=== PATIENT | male | born 1970 | race Caucasian/White ===

== ENCOUNTER 2016-06-28 05:06 | Day surgery (SDC) | payer MEDICARE ==
[~2016-06-28] VITALS: Ht 170.2 cm; Wt 143.3 kg
--- NOTE | ~2016-06-28 | OP ---
PATIENT NAME: LION MCALLISTER MEDICAL RECORD: [id number] :68 LOCATION:D.OPS ADMISSION DATE: SURGEON: RIGO CAMPOS MD DATE OF OPERATION: 06/28/2016 PREOPERATIVE DIAGNOSES: 1. Umbilical hernia. 2. Hypertension. 3. Morbid obesity. POSTOPERATIVE DIAGNOSES: 1. Umbilical hernia. 2. Hypertension. 3. Morbid obesity. PROCEDURE: Umbilical hernia repair without mesh. SURGEON: Rigo Campos MD. REPORT OF PROCEDURE: The patient's abdomen was prepped and draped in sterile fashion. A semi-circular incision was made on the inferior aspect of the umbilicus. Electrocautery was used to dissect through the subcutaneous tissues and we bluntly came around the umbilical stalk. Electrocautery was used to dissect through the hernia sac just below the base of the umbilicus. There was omentum present within it. This was teased back down into the abdominal cavity. We then dissected the fascial edges free from the hernia sac using electrocautery. At this point, we can measure out the hernia defect at 1 x 1.1 cm in greatest diameter. The fascia was then closed transversely using interrupted 0 Prolenes times 4. There was good approximation of the tissue and did not appear to be under any tension. The umbilicus was then tacked down to the fascia using an interrupted 3-0 Vicryl, Silverio's was reapproximated with interrupted 3-0 Vicryls and the skin was closed with running subcutaneous 5-0 Monocryl. A total of 10 mL of 0.25% Marcaine plain were infused into the surrounding tissues and the wound was dressed appropriately. COMPLICATIONS: None. CONDITION: Stable. ANESTHESIA: General endotracheal and local. BLOOD LOSS: Minimal. TRANSINT:[id number] Voice Confirmation ID: [id number] DOCUMENT ID: [id number] RIGO CAMPOS MD CC: LARRY COOL MD [id number] DICTATION DATE: 06/28/16 0850 HOME HEALTH AID: 06/28/16 111[id number] [place] [address]
[~2016-06-28 05:06] MED LIST: COZAAR25 MG PO
[2016-06-28 05:54] LABS: BASOPHILS 0.3 % (0.0-2.0); HEMATOCRIT 41.8 % (42.0-54.0); HEMOGLOBIN 14.1 g/dL (13.5-17.5); IMMATURE GRANULOCYTES 0.2 % (0-5); LYMPHOCYTES 29.8 % (15-50); MCH 32.6 pg (26.0-34.0); MCHC 33.7 g/dL (31.0-37.0); MCV 96.5 fL (80.0-100.0); MEAN PLATELET VOLUME 10.5 fL (7.4-10.4); MONOCYTES 9.4 % (2-11); NEUTROPHILS 57.3 % (40-80); PLATELET COUNT 157 10x3/uL (130-400); RBC 4.33 10x6/uL (4.20-6.10); RDW 12.3 % (11.5-14.5); WBC 5.9 10x3/uL (4.8-10.8)
[2016-06-28 06:11] VITALS: BP 130/103; Ht 170.2 cm; Wt 143.3 kg
[2016-06-28 06:34] LABS: CALC OSMOLALITY 279 mosm/kg (275-300); CALCIUM 8.5 mg/dL (8.5-10.1); CARBON DIOXIDE 30.6 mmol/L (21.0-32.0); CHLORIDE - SERUM 104 mmol/L (98-107); GLUCOSE 94 mg/dL (74-106); POTASSIUM - SERUM 4.2 mmol/L (3.5-5.1); SODIUM 141 mmol/L (136-145); UREA NITROGEN 9 mg/dL (7-18); eGFR NON AFRICAN AMERICAN 85 mL/min (90-120)
--- NOTE | 2016-06-28 08:15 | NUR ---
0810 PATIENT HAD SEVERAL SMALL RED CRUSTY SORES ON ABDOMEN, JONAH STORM.
[2016-06-28] MEDS ORDERED: HYDROCODONE-APA1 TAB PO (08:47)
--- NOTE | 2016-06-28 12:41 | NUR ---
1200 PT VOIDS QS, IV DC'D PER ABNER HEARD RN GETTING DRESSED. 1210 DC INSTS. GIVEN PER ABNER HEARD RN. RX GIVEN, RELEASED IN WC WITH FAMILY.
== END 2016-06-28 12:10 | disposition home or self-care (01) ==
LOC: D.OPS 05:06 → D.PAN 07:30 → D.OPS 07:30 → D.PAN 09:00 → D.OPS 09:00
PROVIDERS: Surgery
DX: K42.9 Umbilical hernia without obstruction or gangrene (principal); I10 Essential (primary) hypertension; E66.01 Morbid (severe) obesity due to excess calories

== ENCOUNTER 2016-07-01 07:06 | Emergency (ER) | payer MEDICARE ==
[2016-06-28 06:11] VITALS: BMI 49.6
[~2016-07-01 07:06] MED LIST changes: +HYDROCODONE-APA1 TAB PO
== END 2016-07-01 09:48 | disposition home or self-care (01) ==
LOC: D.ER 07:06
DX: G89.18 Other acute postprocedural pain (principal); R20.9 Unspecified disturbances of skin sensation; K21.9 Gastro-esophageal reflux disease without esophagitis; I10 Essential (primary) hypertension

== ENCOUNTER 2016-07-03 12:45 | Emergency (ER) | payer MEDICARE ==
[2016-06-28 06:11] VITALS: BMI 49.6
== END 2016-07-03 14:30 | disposition home or self-care (01) ==
LOC: D.ER 12:45
DX: S86.911A Strain of unspecified muscle(s) and tendon(s) at lower leg level, right leg, initial encounter (principal); X58.XXXA Exposure to other specified factors, initial encounter; Y93.89 Activity, other specified; Y92.89 Other specified places as the place of occurrence of the external cause; M79.604 Pain in right leg; M62.838 Other muscle spasm; M54.10 Radiculopathy, site unspecified; K21.9 Gastro-esophageal reflux disease without esophagitis; I10 Essential (primary) hypertension

== ENCOUNTER 2017-10-29 00:04 | Outpatient (CLI) | payer SELFPAY ==
[~2017-10-29] VITALS: Ht 170.2 cm; Wt 129.5 kg
--- NOTE | ~2017-10-29 | EC ---
PATIENT:LION MCALLISTER DATE OF SERVICE: 10/29/17 SEX: M MEDICAL RECORD: [id number] DATE OF : 68 LOCATION:D.CAT AGE OF PATIENT: 47 ADMISSION DATE: 10/29/17 REFERRING PHYSICIAN: INTERPRETING PHYSICIAN: DIONY ARELLANO MD ECHOCARDIOGRAM REPORT ECHO CHARGES 4 ECHO COMPLETE Date: 10/29 CLINICAL DIAGNOSIS: ANGINA ECHOCARDIOGRAPHIC MEASUREMENTS (adult normal given) AC root (d.<3.7cm) 3.6 cm LV Septum d (<1.2 cm> 1.4 cm Valve Excursion 1.6 cm LV Septum (systole) 1.7 cm Left Atria (s.<4.0cm> 3.7 cm LVPW d(<1.2cm) 1.6 cm RV (d.<2.3cm) 4.1 cm LVPW (sytole) 2.0 cm LV diastole(<5.6CM) 5.3 cm MV E-F(>70mm/sec) 4.5 cm LV systole 4.5 cm LVOT Diameter 1.8 cm MV exc.(>10mm) 2.0 cm Est.ejection fraction (50-75%) % DOPPLER: LVIT cm/sec A 57.0 cm/sec E 53.0 cm/sec LA cm/sec RVSP 20 mmHg LVOT 96 cm/sec AOP1/2T m/s Asc. Ao 113 cm/sec RVOT 69 cm/sec RA cm/sec PA 120 cm/sec AV Gradient Peak 5.09 mmHg AV Mean 2.37 mmHg AV Area 2.1 cm MV Gradient Peak 1.59 mmHg MV Mean 0.78 mmHg MV Area cm COMMENTS: Printer Maintainer: Britni [employer] Technician: 1 Dr. Arellano TAPE# PACS Pericardial Effusion N DATE OF SERVICE: 10/29/2017 PROCEDURE: Echocardiogram. FINDINGS: 1. Left ventricular chamber size is within normal limits. Left ventricular systolic function is normal. Overall ejection fraction estimated at 55%. 2. Left atrium, right atrium, and right ventricle chamber sizes are within normal limits. 3. Valvular structures have normal structure and motion. ECHOCARDIOGRAM REPORT [id number] LION MCALLISTER 4. Doppler interrogation only reveals trace tricuspid regurgitation, no other valvular insufficiency or stenosis. Pulmonary systolic pressure is estimated at 20 mmHg. 5. No evidence of pericardial effusion or left ventricular thrombus. TRANSINT:[id number] Voice Confirmation ID: [id number] DOCUMENT ID: [id number] DIONY ARELLANO MD at 1642 CC: [id number] DICTATION DATE: 10/30/17 120 [employer] RESEARCH SCIENTIST: 10/30/17 1304 DEP CLI 10/30/17 [id number] [place] [address] [id number]
--- NOTE | ~2017-10-29 | OP ---
PATIENT NAME: LION MCALLISTER MEDICAL RECORD: [id number] :68 LOCATION:D.CAT ADMISSION DATE: SURGEON: DIONY RICHTER MD DATE OF OPERATION: 10/30/2017 PROCEDURE: Four-vessel carotid and vertebral angiography. INDICATION: Dizziness and near syncope. PROCEDURE IN DETAIL: After informed consent was obtained and after detailed description of risks and benefits as well as alternative therapies, the patient elected to proceed with angiogram. The right femoral area had a preexisting sheath from cardiac intervention. All catheters were exchanged through the sheath. FINDINGS: There was subselection of each subclavian as well as left carotid. On right side, common internal and external carotids have mild plaquing, but none greater than 10%. No flow-limiting stenosis. Vertebral artery has no significant disease. In left system, the common internal and external carotids have mild plaquing, not greater than 10%. No flow-limiting stenosis. Vertebral artery has no significant disease. OVERALL IMPRESSION: No significant carotid vascular disease is present. His symptomatology is not secondary to carotid vascular insufficiency. TRANSINT:[id number] Voice Confirmation ID: [id number] DOCUMENT ID: [id number] DIONY RICHTER MD at 1642 CC: [id number] DICTATION DATE: 10/30/17 1018 NITRATOR OPERATOR: 10/30/17 1243 DEP CLI 10/30/17 [id number] [place] [address]
--- NOTE | ~2017-10-29 | HP ---
PATIENT: LION MCALLISTER MEDICAL RECORD: [id number] ACCOUNT: [id number] LOCATION:[facility] : 68 ADMISSION DATE: 10/29/17 HISTORY AND PHYSICAL EXAMINATION ADMISSION DIAGNOSES: 1. Unstable angina. 2. Dizziness, unsteady gait. 3. Hypertension. HISTORY OF PRESENT ILLNESS: This is a gentleman with no history of ischemic heart disease. For the past few weeks, he has been having increasing episodes of chest pain and chest pressure. This has now progressed to rest pain. His troponin is normal. His EKG is with no acute changes; however, he continues to have the episodes of pain. He as well has had episodes of dizziness, syncope, and unsteady gait. PHYSICAL EXAMINATION: GENERAL APPEARANCE: Well-nourished, well-developed, appears stated age. Level of distress, comfortable. PSYCHIATRIC: Mental status, alert, normal affect. Orientation, oriented to time, place and person. EYES: Lids and conjunctiva, noninjected. No discharge, no pallor. ENT: Lips, teeth, gums, normal dentition. Oropharynx, no cyanosis, no pallor. NECK: Carotid arteries, bilateral normal upstroke, no bruits, no thrills. JUGULAR VEINS: No jugular venous pressure or distention. CERVICAL LYMPH NODES: Nontender, nonenlarged. THYROID: Not enlarged. Nontender. No nodules. LUNGS: Respiratory effort, unlabored. CHEST: Normal curvature. No thoracic deformity. No chest wall tenderness. Percussion, resonant. Auscultation, clear. No wheezes, no rales, no rhonchi. CARDIOVASCULAR: Precordial exam, nondisplaced. No heaves or pericardial thrills. Rate and rhythm, regular. Heart sounds, normal S1, normal S2. No S3, no gallop, no rub. Systolic murmur, not heard. Diastolic murmur, not heard. EXTREMITIES: No cyanosis, no edema. Peripheral pulses, full and equal in all extremities, except as noted. No bruits appreciated. ABDOMEN: Soft, nondistended. Normal aorta. No bruit. Nontender. No masses. Liver, nontender, no hepatomegaly. Spleen, nontender, no splenomegaly. MUSCULOSKELETAL: No joint tenderness. No joint swelling. No erythema. NEUROLOGICAL: Normal gait, normal strength, normal tone. SKIN: Warm and dry. REVIEW OF SYSTEMS: The patient reports easy bruising but reports no swollen glands. The patient reports no fever, no night sweats, no significant weight gain, no significant weight loss. No significant exercise tolerance. The patient reports no dry eyes, no irritation, no vision change. Patient reports no difficulty hearing and no ear pain. Patient reports no frequent nose bleeds or nose and sinus problems. Patient reports on arm pain on exertion. No shortness of breath while lying down. No history of heart murmur. Patient reports no cough, no wheezing or coughing up blood. Patient reports no abdominal pain, no vomiting. Normal appetite. No diarrhea and not vomiting blood. No nausea and no constipation. Patient reports no incontinence. No difficulty urinating. No hematuria. No increased frequency. Patient reports no muscle aches. No weakness, no arthralgias, no back pain. No swelling of the extremities. Patient reports no abnormal mole, no jaundice, no rashes. Reports HISTORY AND PHYSICAL [id number] LION MCALLISTER no loss of consciousness. No weakness and no numbness. No seizures, dizziness, or headaches. The patient reports no depression, no sleep disturbance, feeling safe in a relationship and no alcohol abuse. Patient reports on fatigue. Reports no runny nose or sinus pressure. No itching, no hives, and no frequent sneezing. OVERALL IMPRESSION: Chest pain compatible with unstable angina in rapidly progressive fashion. We will proceed with coronary angiography. Further care depends on findings of the angiography. TRANSINT:[id number] Voice Confirmation ID: [id number] DOCUMENT ID: [id number] DIONY RICHTER MD at 1642 CC: [id number] DICTATION DATE: 10/29/17 0957 STONE PLANER: 10/29/17 1032 DEP CLI 10/30/17 [place] [address]
--- NOTE | ~2017-10-29 | OP ---
PATIENT NAME: LION MCALLISTER MEDICAL RECORD: [id number] :68 LOCATION:D.CAT ADMISSION DATE: SURGEON: DIONY RICHTER MD DATE OF OPERATION: 10/30/2017 PROCEDURES: 1. PTCA and stent, LAD. 2. Left heart catheterization. 3. Selective coronary angiography. 4. Left ventriculogram. 5. Intravascular ultrasound. INDICATIONS: Angina and coronary disease. PROCEDURE IN DETAIL: After informed consent was obtained and after detailed description of risks and benefits as well as alternative therapies, the patient elected to proceed with angiogram and angioplasty. The right femoral area was prepped and draped in normal sterile fashion. The right femoral artery was cannulated via modified Seldinger technique with placement of 6-Georgian sheath. All catheters were exchanged through the sheath. FINDINGS: The left ventriculogram was performed in standard 30-degree BALL view, reveals good cardiac wall motion throughout all segments. Overall ejection fraction is estimated at 60%. SELECTIVE CORONARY ANGIOGRAPHY: 1. Left main is with no significant angiographic disease. 2. Left anterior descending has greater than 70% stenosis, confirmed by intravascular ultrasound. 3. Left circumflex has mild irregularities, but no flow-limiting stenosis. 4. Right coronary has mild irregularities, but no flow-limiting stenosis. PTCA AND STENT OF THE LAD: Stent used was a 2.25 x 38-mm [place]. Result was 0% residual stenosis. OVERALL IMPRESSION: Successful PTCA and stent of the LAD going from greater than 70% initial stenosis to 0% residual. TRANSINT:[id number] Voice Confirmation ID: [id number] DOCUMENT ID: [id number] DIONY RICHTER MD at 1642 CC: [id number] DICTATION DATE: 10/30/17 1018 TESTING SPECIALIST: 10/30/17 1236 DEP CLI 10/30/17 [id number] [place] [address]
--- NOTE | ~2017-10-29 | DS ---
PATIENT:LION CLANCY :68 MEDICAL RECORD: [id number] DISCHARGE SUMMARY ADMISSION DATE: 10/29/17 DISCHARGE DATE: 10/30/17 DISCHARGE DIAGNOSES: 1. Angina. 2. Percutaneous transluminal coronary angioplasty stent left anterior descending this admission. 3. Hypertension. HOSPITAL COURSE: Mr. Clancy presents with anginal symptomatology, found to have single vessel disease to the LAD, underwent successful PTCA stent of the LAD, had an uneventful postop course and was discharged home with the addition of aspirin and Plavix to his medical regimen. He will follow up with [facility] in 1 month. TRANSINT:[id number] Voice Confirmation ID: [id number] DOCUMENT ID: [id number] DIONY RICHTER MD at 1642 CC: [id number] DICTATION DATE: 10/30/17 1015 WELDING MANAGER: 10/30/17 1355 DEP CLI 10/30/17 [id number] [place] [address]
--- NOTE | ~2017-10-29 | HEMODYNAMI ---
PATIENT:LION MCALLISTER MEDICAL RECORD: [id number] : 68 [address] [id number] ADMISSION DATE: 10/29/17 Generatedon:10/30/201710:16 Patient name: LION MCALLISTER Patient #: [id number] SSN: DO B: 1970 Date of study: 10/30/2017 Page: Of Hemodynamic Procedure Report Patient Data Patient Demographics Procedure consent was obtained First Name: LION Gender: Male Last Name: ARY : 1970 [facility] Initial: BIBI Age: 47 year(s) Patient #: [id number] Race: Unknown Additional ID: [id number] Contact details Address: [address] [place] [address] State: [place] City: [place] Zip code: [address] Past Medical History Allergies: No known allergies Admission Admission Data Admission Date: 10/29/2017 Admission Time: 0:50 Room #: D2129 Lab Results Lab Result Date: 10/30/2017 Lab Result Time: 0:00 Biochemistry Name Units Result Min Max BUN mg/dl 13 --(--*-)-- 7 18 Creatinine mg/dl 1.1 --(--*-)-- 0.6 1.3 CBC Name Units Result Min Max Hemoglobin g/dl 16.1 --(--*-)-- 13.5 17.5 Procedure Procedure Types Cath Procedure Diagnostic Procedure LHC [facility] w/Coronaries FFR/IVUS Intra-Coronary IVUS Initial Sedation Charges Moderate Sedation up to 15 minutes PCI Procedure Coronary Stent Coronary Stent Initial Peripheral Cath Diagnostic Procedure Cath Peripheral Four Vessel Arteriogram Procedure Description Procedure Date Procedure Date: 10/30/2017 Procedure Start Time: 9:54 Procedure End Time: 10:16 Procedure Staff Name Function Kale Arellano MD Performing Physician Enedina Raza RT Monitor Malick López RT Scrub Agus Floyd RN Nurse Procedure Data Cath Procedure Fluoroscopy Diagnostic fluoroscopy Total fluoroscopy Time: 6.7 time: 6.7 min min Diagnostic fluoroscopy Total fluoroscopy dose: dose: 1031 mGy 1031 mGy Contrast Material Contrast Material Type Amount (ml) Isovue 300 129 Entry Location Entry Primary Successful Side Size Upsize Upsize Entry Closure Succes sful Closure Location (Fr) 1 (Fr) 2 (Fr) Remarks Device Remarks Femoral Right 5 Fr 6 Fr Exoseal artery Short Estimated blood loss: 10 ml Diagnostic catheters Device Type Used For End Catheter Placement MULTIPACK Pigtail 5 Fr Procedure catheter MULTIPACK JL 4.0 5Fr Procedure catheter MULTIPACK 3DRC 5Fr Procedure catheter Procedure Complications No complications Procedure Medications Medication Administration Route Dosage 0.9% NaCl I.V. 100 ml/hr Oxygen etCO2 Nasal cannula 2 l/min Heparin Flush Bag added to field 2 bags (1000units/500ml NS) Lidocaine 2% added to field 20 Versed I.V. 2 mg Fentanyl I.V. 100 mcg Versed I.V. 1 mg Heparin Bolus I.V. 4000 units Hemodynamics Rest HGB: 16.1 (g/dl) Heart Rate: 63 (bpm) Snapshots Pre Cath Intra NCS Post Cath Vital Signs Time Heart Resp SPO2 etCO2 NIBP (mmHg) Rhythm Pain Sedation Rate (ipm) (%) (mmHg) Status Level (bpm) 9:20:59 63 19 98 0 156/87(123) NSR 0 (11) 10(A) , No pain 9:25:44 62 18 100 36.6 168/98(111) NSR 0 (11) 10(A) , No pain 9:30:23 60 15 97 37.4 133/87(104) NSR 0 (11) 10(A) , No pain 9:35:38 66 20 98 33.6 164/84(129) NSR 0 (11) 10(A) , No pain 9:40:21 61 21 99 38.1 156/84(103) NSR 0 (11) 10(A) , No pain 9:45:05 64 12 98 23.9 141/84(105) NSR 0 (11) 10(A) , No pain 9:49:46 59 16 97 27.6 133/75(105) NSR 0 (11) 10(A) , No pain 9:54:22 79 15 96 37.4 142/97(108) NSR 0 (11) 9(A) , No pain 9:59:38 75 15 98 40.4 162/85(116) NSR 0 (11) 9(A) , No pain 10:04:21 70 13 96 39.6 148/86(135) NSR 0 (11) 9(A) , No pain 10:09:01 79 15 98 41.1 144/89(120) NSR 0 (11) 10(A) , No pain 10:13:40 73 15 98 41.9 145/91(119) NSR 0 (11) 10(A) , No pain Medications Time Medication Route Dose Verified Delivered Reason Notes Effectiveness by by 9:24:57 0.9% NaCl I.V. 100 Agus Agus Per physician ml/hr Everett Floyd RN RN 9:25:06 Oxygen etCO2 2 Agus Agus Per physician Nasal l/min Everett Floyd cannula RN RN 9:25:18 Heparin Flush added 2 Agus Agus used for Bag to bags Everett Floyd procedure (1000units/500ml field RN RN NS) 9:25:28 Lidocaine 2% added 20ml Agus Agus for local to vial Everett Floyd anesthetic RN RN 9:43:59 Versed I.V. 2 mg Agus Agus for sedation Everett Floyd RN RN 9:44:08 Fentanyl I.V. 100 Agus Agus for sedation mcg Everett Floyd RN RN 9:55:15 Versed I.V. 1 mg Agus Agus for sedation Everett Floyd RN RN 10:07:28 Heparin Bolus I.V. 4000 Agus Agus for units Everett Floyd anticoagulation RN retail wireless sales representative Log Time Note 9:04:35 Malick REYES(R) sent for patient. Start room use. 9:04:36 Time tracking: Regular hours (M-F 7:00 - 5:00) 9:04:39 Plan of Care:Hemodynamics will remain stable., Cardiac rhythm will remain stable., Comfort level will be maintained., Respiratory function will remain adequate., Patient/ family verbilizes understanding of procedure., Procedure tolerated without complication., Recovers from procedure without complications.. 9:04:41 Signed procedure consent form obtained from patient. 9:06:32 Lab Result : BUN 13 mg/dl 9:06:32 Lab Result : Hemoglobin 16.1 g/dl 9:06:32 Lab Result : Creatinine 1.1 mg/dl 9:06:54 H&P Date Dictated: 10/29/2017 Within 30 days and on chart.. 9:14:22 Patient received from Med II to CCL 1 Alert and oriented. Tansferred to table in Supine position. 9:14:23 Warm blankets applied, and dakotah hugger turned on for patient comfort. 9:14:24 Correct patient and procedure confirmed by team. 9:14:25 ECG and BP/O2 sat monitors applied to patient. 9:20:07 Vital chart was started 9:20:08 Baseline sample Acquired. 9:20:09 Full Disclosure recording started 9:23:12 Baseline sample Acquired. 9:23:17 Rhythm: sinus rhythm 9:24:22 Pre-procedure instructions explained to patient. 9:24:22 Pre-op teaching completed and patient verbalized understanding. 9:24:24 Family in patients room. 9:24:26 Patient NPO since Midnight. 9:24:31 Patient allergic to No known allergies 9:24:34 Is the patient allergic to Iodine/contrast media? No. 9:24:35 Is patient on blood thinner?Yes 9:24:37 ACC The patient was administered the following blood thiners within the last 24 hours: ACCPlavix 9:24:39 Patient diabetic? No. 9:24:41 Previous problem with sedation/anesthesia? No ? 9:24:42 Snore? Yes 9:24:43 Sleep apnea? No 9:24:44 Deviated septum? No 9:24:45 Opens mouth fully? Yes 9:24:46 Sticks out tongue? Yes 9:24:48 Airway obstruction? No ? 9:24:49 Dentures? Yes ? 9:24:54 Pre procedure: right dorsailis pedis pulse 2+ Normal; easily identifiable; not easily obliterated 9:24:57 0.9% NaCl 100 ml/hr I.V. was administered by Agus Floyd RN; Per physician; 9:24:57 Patient pain scale 0/10 ?. 9:25:00 IV patent on arrival in left hand with 0.9% NaCl at KVO. 9:25:03 Lab results completed and on chart. 9:25:06 Oxygen 2 l/min etCO2 Nasal cannula was administered by Agus Floyd RN; Per physician; 9:25:07 Right groin area was prepped with chlora-prep and draped in sterile fashion 9:25:08 Alarms reviewed by R. N. 9:25:08 Sharps counted by scrub and verified by R.N. 9:25:11 Use device set Femoral Dx 9:25:12 ACIST Syringe (03713) opened to sterile field. 9:25:14 Bag Decanter (2002S) opened to sterile field. 9:25:15 ACIST Hand Control (63477) opened to sterile field. 9:25:15 ACIST Manifold (25465) opened to sterile field. 9:25:17 Tegaderm 4 x 4 (1626W) opened to sterile field. 9:25:18 Heparin Flush Bag (1000units/500ml NS) 2 bags added to field was administered by Agus Floyd RN; used for procedure; 9:25:19 Medline Cath Pack (PSCP64026) opened to sterile field. 9:25:20 DIAGNOSTIC WIRE .035 260cm J wire (700121) opened to sterile field. 9:25:21 DIAGNOSTIC Multipack 5Fr catheter set (FS3041) opened to sterile field. 9:25:22 SHEATH Prelude 5Fr 0.035 (IUV-8N-30-035) opened to sterile field. 9:25:28 Lidocaine 2% 20ml vial added to field was administered by Agus Floyd RN; for local anesthetic; 9:37:47 Zero performed for pressure channel P1 9:42:18 --------ALL STOP TIME OUT------ 9:42:18 Final Timeout: patient, procedure, and site verified with staff and physician. All members of the team are in agreement. 9:42:19 Right groin site verified by team. 9:42:23 Physical assessment completed. ASA score P 2 - A patient with mild systemic disease as per Kale Arellano MD. 9:42:28 Sedation plan: IV Moderate Sedation Medication:Versed, Fentanyl 9:43:59 Versed 2 mg I.V. was administered by Agus Floyd RN; for sedation; 9:44:08 Fentanyl 100 mcg I.V. was administered by Agus Floyd RN; for sedation; 9:54:19 Procedure started. 9:54:23 Local anesthetic to right femoral artery with Lidocaine 2% by Kale Arellano MD.INITIAL ACCESS ONLY 9:55:11 A 5 Fr sheath was inserted into the Right Femoral artery 9:55:15 Versed 1 mg I.V. was administered by Agus Floyd RN; for sedation; 9:55:24 A MULTIPACK Pigtail 5 Fr catheter was advanced over the wire and used for Procedure. 9:55:38 LV gram done using BALL 9:55:40 Injector settings: Ml/sec: 10, Volume: 20, 9:56:02 EF : 60 % 9:56:04 Catheter removed. 9:56:10 A MULTIPACK JL 4.0 5Fr catheter was advanced over the wire and used for Procedure. 9:57:17 LCA angiography performed. 9:57:34 Catheter removed. 9:57:39 A MULTIPACK 3DRC 5Fr catheter was advanced over the wire and used for Procedure. 9:58:44 RCA angiography performed. 9:59:09 Right carotid angiography performed. 9:59:39 Left carotid angiography performed. 9:59:43 Catheter removed. 9:59:58 SHEATH 6FR [place] (LGV523) opened to sterile field. 10:00:02 INFLATOR Merit BasixCompak (XP5673) opened to sterile field. 10:00:09 CHOICE PT Extra Support 182cm wire ([id number]) opened to sterile field. 10:00:40 Clayton [place] IVUS Catheter (30010R) opened to sterile field. 10:00:51 Sheath upsized to a 6 Fr Short. 10:01:00 GUIDE 6FR XBLAD 4.0 catheter ([id number]) opened to sterile field. 10:01:11 6 Fr XBLAD 4 guide catheter was inserted over the wire 10:03:40 CHOICE ES 182 wire advanced. 10:03:42 Wire advanced across lesion. 10:04:11 IVUS catheter advanced over wire. 10:06:30 IVUS pass to LAD lesion performed. 10:06:31 IVUS catheter removed over wire. 10:07:28 Heparin Bolus 4000 units I.V. was administered by Agus Floyd RN; for anticoagulation; 10:09:11 Place stent Inflation Number: 1 A TEETEE RX 2.25 x 38 stent ([id number]) was prepped and advanced across the Mid LAD. The stent was deployed at 13 CRUZ for 0:10 (min:sec). 10:09:28 EXOSEAL 6Fr (EX600) opened to sterile field. 10:10:32 Stent catheter was removed intact over wire. 10:10:33 Wire removed. 10:10:33 Guide catheter removed. 10:10:49 Sheath removed intact; hemostasis achieved with Exoseal to the Right Femoral artery. 10:10:52 Procedure ended.(Physican Out) 10:12:27 Fluoroscopy time 06.70 minutes. 10:12:31 Fluoroscopy dose: 1031 mGy 10:12:31 Flurop Dose total: 1031 10:12:34 Contrast amount:Isovue 300 129ml. 10:12:36 Sharps counted by scrub and verified by R.N. 10:12:40 Post-op/insertion site Right Femoral artery dressed using a 4 x 4 and Tegaderm. 10:12:44 Post right femoral artery:stable, soft, clean and dry 10:12:47 Post-procedure physical assessment completed. ASA score P 2 - A patient with mild systemic disease as per Kale Arellano MD. 10:12:50 Post procedure rhythm: sinus rhythm 10:12:52 Estimated blood loss: 10 ml 10:13:34 Post procedure instruction explained to patient.Patient verbalizes understanding. 10:13:35 Patient needs reinforcement of post procedure teaching. 10:14:29 Procedure type changed to Cath procedure, Diagnostic procedure, LHC, LHC w/Coronaries, FFR/IVUS, Intra-Coronary IVUS Initial, Sedation Charges, Moderate Sedation up to 15 minutes, PCI procedure, Coronary Stent, Coronary Stent Initial, Peripheral Cath Diagnostic Procedure, Cath Peripheral, Four Vessel Arteriogram 10:15:41 Procedure and supply charges have been captured, reviewed, submitted and are correct. 10:15:43 Procedure Complication : No complications 10:15:47 Vital chart was stopped 10:15:47 See physician's report for complete and final results. 10:16:07 Report given to PCU. 10:16:10 Patient transfered to PCU with Bed. 10:16:11 Procedure ended. 10:16:11 Full Disclosure recording stopped 10:16:16 End room use (Document Last) Intervention Summary Intervention Notes Time ActionType Lesion and Equipment Used Action# Pressure Duration Attributes 10:09:11 Place stent Mid LAD TEETEE RX 2.25 x 1 13 00:10 38 stent ([id number]) Device Usage Item Name Manufacture Quantity Catalog Number Hospital Part Current Minimal Lot# / Charge Number Stock Stock Serial# Code ACIST Syringe Acist 1 66900 093643 964451 555020 20 (54798) [employer] Bag Decanter Microtek 1 2001S 303191 54416 656471 5 (2001S) Medical Inc. ACIST Hand Acist 1 82306 738883 446740 078236 5 Control (70591) [employer] Inc ACIST Manifold Acist 1 26257 799539 007167 458539 5 (10121) [employer] Systems Inc Tegaderm 4 x 4 3M 1 1626W 912367 375759 402392 5 (1626W) Medline Cath Cardinal 1 [id number] 202072 64268 452988 5 VocoMD Health ([id number]) DIAGNOSTIC WIRE [place] 1 795364 409125 879238 289688 30 .035 260cm J wire (073517) DIAGNOSTIC Cardinal 1 CS4160 444344 42751 198708 30 Multipack 5Fr Health catheter set ([id number]) SHEATH Prelude Merit 1 BED-9M-20-035 911562 787899 088248 5 5Fr 0.035 Medical (JHN-8D-04-035) MULTIPACK Cardinal 1 862820 5 Pigtail 5 Fr Health catheter MULTIPACK JL Cardinal 1 475263 5 4.0 5Fr Health catheter MULTIPACK 3DRC Cardinal 1 704335 5 5Fr catheter Health SHEATH 6FR Terumo 1 SAY427 214625 387769 488365 40 [place] (APA079) INFLATOR Merit Merit 1 RS1011 071629 512755 220780 15 [employer]Cast Inc. (RJ8284) CHOICE PT Extra [place] 1 [id number] 833783 376599 873507 5 Support 182cm Scientific wire ([id number]) Clayton Clayton 1 30319G 566242 858017 182482 8 [place] Eag[place]e IVUS Catheter (30941Z) GUIDE 6FR XBLAD Cardinal 1 [id number] 295507 006074 964732 3 4.0 catheter ManyWho ([id number]) TEETEE RX 2.25 x Medtronic 1 [id number] 795020 0346302 702431 5 [id number] 38 stent ([id number]) EXOSEAL 6Fr Cardinal 1 EX600 333596 933474 441278 10 (EX600) Health Signature Audit [place] Stage Time Signature Unsigned Intra-Procedure 10/30/2017 Enedina Raza 10:16:41 AM RT(R) Signatures Monitor : Enedina Raza Signature : RT Date : Time : [place] [id number] [place] [id number]
[2017-10-29 00:49] LABS: BASOPHILS 0.2 % (0-2); EOSINOPHILS 2.3 % (0-7); HEMATOCRIT 45.5 % (42.0-54.0); HEMOGLOBIN 16.1 g/dL (13.5-17.5); IMMATURE GRANULOCYTES 0.2 % (0-5); LYMPHOCYTES 21.4 % (15-50); MCH 32.7 pg (26.0-34.0); MCHC 35.4 g/dL (31.0-37.0); MCV 92.5 fL (80.0-100.0); MEAN PLATELET VOLUME 11.4 fL (7.4-10.4); MONOCYTES 17.3 % (2-11); NEUTROPHILS 58.6 % (40-80); PLATELET COUNT 151 10x3/uL (130-400); RBC 4.92 10x6/uL (4.20-6.10); RDW 12.6 % (11.5-14.5); WBC 5.6 10x3/uL (4.8-10.8)
[2017-10-29 01:03] LABS: ALBUMIN 3.6 g/dL (3.4-5.0); ALKALINE PHOSPHATASE 75 U/L (46-116); ALT (SGPT) 48 U/L (10-68); BILIRUBIN - TOTAL 0.71 mg/dL (0.2-1.3); CALC OSMOLALITY 278 mosm/kg (275-300); CALCIUM 8.5 mg/dL (8.5-10.1); CARBON DIOXIDE 32.7 mmol/L (21.0-32.0); CHLORIDE - SERUM 100 mmol/L (98-107); CREATININE - SERUM 1.1 mg/dL (0.6-1.3); GLUCOSE 103 mg/dL (74-106); PROTEIN - SERUM 7.9 g/dL (6.4-8.2); SODIUM 140 mmol/L (136-145); UREA NITROGEN 13 mg/dL (7-18); eGFR NON AFRICAN AMERICAN 76 mL/min (90-120)
[2017-10-29 01:14] LABS: INR 0.96 (0.85-1.17); PROTIME 12.4 SECONDS (11.6-15.0)
[2017-10-29 01:18] LABS: CKMB 1.1 U/L (0.0-3.6); CREATINE KINASE 256 UL (21-232); PRO BNP 111 pg/mL (0-125); TROPONIN-I < 0.017 ng/mL (0.000-0.060)
[2017-10-29 01:41] VITALS: BP 110/81
[2017-10-29 01:48] LABS: APTT 37.5 SECONDS (22.8-39.4)
[2017-10-29 04:00] VITALS: BP 125/86
[2017-10-29 06:50] LABS: CKMB 1.1 U/L (0.0-3.6); CREATINE KINASE 213 UL (21-232)
[2017-10-29 06:51] LABS: TROPONIN-I < 0.017 ng/mL (0.000-0.060)
[2017-10-29] MEDS ORDERED: ZIAC 10-6.25 MG1 TAB PO (08:23)
[2017-10-29] MEDS ORDERED: ZESTRIL10 MG PO (08:24)
[2017-10-29 08:55] VITALS: BP 107/77
[2017-10-29 13:06] LABS: CKMB 0.8 U/L (0.0-3.6); CREATINE KINASE 180 UL (21-232)
[2017-10-29 13:07] LABS: TROPONIN-I < 0.017 ng/mL (0.000-0.060)
[2017-10-29 13:20] VITALS: BP 112/76
[2017-10-29 16:50] VITALS: BP 111/69
[2017-10-29 21:17] VITALS: BP 117/65
[2017-10-30 00:28] VITALS: BP 115/73
[2017-10-30 03:28] VITALS: BP 115/73; Ht 170.2 cm; Wt 129.5 kg
[2017-10-30 04:07] VITALS: BP 114/73
[2017-10-30 07:00] VITALS: BP 114/62
[2017-10-30] MEDS ORDERED: BAYER CHEWABLE81 MG PO (11:09)
[2017-10-30] MEDS ORDERED: PLAVIX75 MG PO (11:10)
== END 2017-10-30 15:00 | disposition home or self-care (01) ==
LOC: OBSVTIME → D.CATH 00:04 → D.ER 00:04 → D.EDHOLD 00:50 → D.M2 00:50 → OBSVTIME 00:50 → D.ER 00:50 → D.M2 01:27 → D.EDHOLD 01:27 → D.ER 01:42 → EDSTATUS 10-30 12:45 → D.CATH 10-30 15:00 → D.M2 10-30 15:00
PROVIDERS: Emergency Medicine
DX: I25.110 Atherosclerotic heart disease of native coronary artery with unstable angina pectoris (principal); R42 Dizziness and giddiness; R26.89 Other abnormalities of gait and mobility; I10 Essential (primary) hypertension

== ENCOUNTER 2018-07-10 16:23 | Emergency (ER) | payer BC ==
[~2018-07-10] VITALS: Ht 170.2 cm; Wt 136.4 kg
[~2018-07-10 16:23] MED LIST changes: +BAYER CHEWABLE81 MG PO; +PLAVIX75 MG PO; +ZESTRIL10 MG PO; +ZIAC 10-6.25 MG1 TAB PO
[2018-07-10 16:26] VITALS: Ht 170.2 cm; Wt 136.4 kg
[2018-07-10 16:56] LABS: BASOPHILS 0.3 % (0-2); EOSINOPHILS 4.1 % (0-7); HEMATOCRIT 41.6 % (42.0-54.0); HEMOGLOBIN 14.4 g/dL (13.5-17.5); IMMATURE GRANULOCYTES 0.3 % (0-5); LYMPHOCYTES 27.6 % (15-50); MCH 32.6 pg (26.0-34.0); MCHC 34.6 g/dL (31.0-37.0); MCV 94.1 fL (80.0-100.0); MEAN PLATELET VOLUME 10.4 fL (7.4-10.4); MONOCYTES 8.3 % (2-11); NEUTROPHILS 59.4 % (40-80); PLATELET COUNT 172 10x3/uL (130-400); RBC 4.42 10x6/uL (4.20-6.10); WBC 6.2 10x3/uL (4.8-10.8)
[2018-07-10 17:09] LABS: APTT 33.6 SECONDS (22.8-39.4); INR 0.93 (0.85-1.17)
[2018-07-10 17:15] LABS: ALBUMIN 3.6 g/dL (3.4-5.0); ALKALINE PHOSPHATASE 69 U/L (46-116); ALT (SGPT) 29 U/L (10-68); BILIRUBIN - TOTAL 0.47 mg/dL (0.2-1.3); CALC OSMOLALITY 280 mosm/kg (275-300); CALCIUM 8.8 mg/dL (8.5-10.1); CARBON DIOXIDE 29.6 mmol/L (21.0-32.0); CHLORIDE - SERUM 104 mmol/L (98-107); CREATININE - SERUM 1.1 mg/dL (0.6-1.3); GLUCOSE 98 mg/dL (74-106); PROTEIN - SERUM 7.5 g/dL (6.4-8.2); SODIUM 141 mmol/L (136-145); UREA NITROGEN 13 mg/dL (7-18); eGFR NON AFRICAN AMERICAN 76 mL/min (90-120)
[2018-07-10 17:26] LABS: CKMB 0.4 U/L (0.0-3.6); CREATINE KINASE 111 UL (21-232); MAGNESIUM - SERUM 1.9 mg/dL (1.8-2.4)
[2018-07-10 17:31] LABS: TROPONIN-I < 0.017 ng/mL (0.000-0.060)
[2018-07-10 19:12] VITALS: BP 137/83
== END 2018-07-10 19:13 | disposition home or self-care (01) ==
LOC: D.ER 16:23
PROVIDERS: Family Medicine
DX: R07.89 Other chest pain (principal)

== ENCOUNTER → 2018-07-19 06:46 | Outpatient (CLI) | payer BC ==
[2018-07-10 16:26] VITALS: BMI 47.1
== END | disposition home or self-care (01) ==
LOC: D.US 06:46
PROVIDERS: ATTEND Family Medicine
DX: R10.10 Upper abdominal pain, unspecified (principal)

== ENCOUNTER 2018-07-28 01:56 | Emergency (ER) | payer MEDICARE ==
[~2018-07-28] VITALS: Ht 170.2 cm; Wt 140.9 kg
[2018-07-28 02:07] VITALS: Ht 170.2 cm; Wt 140.9 kg
[2018-07-28] MEDS ORDERED: VOLTAREN75 MG PO (02:45)
[2018-07-28 03:20] VITALS: BP 129/71
== END 2018-07-28 03:20 | disposition home or self-care (01) ==
LOC: D.ER 01:56
DX: M54.6 Pain in thoracic spine (principal)

== ENCOUNTER → 2018-08-07 07:05 | Outpatient (CLI) | payer MEDICARE ==
[2018-07-28 02:07] VITALS: BMI 48.7
[~2018-08-07 07:05] MED LIST changes: +VOLTAREN75 MG PO
== END | disposition home or self-care (01) ==
LOC: D.NM 08-06 08:00
PROVIDERS: ATTEND Family Medicine
DX: R10.10 Upper abdominal pain, unspecified (principal)

== ENCOUNTER 2018-08-23 07:40 | Day surgery (SDC) | payer MEDICARE ==
[~2018-08-23] VITALS: Ht 170.2 cm; Wt 140.6 kg
--- NOTE | ~2018-08-23 | OP ---
PATIENT NAME: LION MCALLISTER MEDICAL RECORD: [id number] :68 LOCATION:[facility] ADMISSION DATE: SURGEON: RIGO CAMPOS MD DATE OF OPERATION: 08/23/2018 PREOPERATIVE DIAGNOSES: 1. Biliary dyskinesia. 2. Morbid obesity with a BMI of 48. 3. Hypertension. 4. Coronary artery disease. POSTOPERATIVE DIAGNOSES: 1. Biliary dyskinesia. 2. Morbid obesity with a BMI of 48. 3. Hypertension. 4. Coronary artery disease. PROCEDURE: Laparoscopic cholecystectomy. SURGEON: Rigo Campos MD REPORT OF PROCEDURE: The patient's abdomen was prepped and draped in sterile fashion. A cutdown was made on the superior aspect of the umbilicus, 0 Vicryls were placed in the fascia bilaterally and the fascia was incised with 15-blade. I then bluntly entered the peritoneal cavity and placed a 12-mm Pablo port. Under direct visualization, a 5 mm trocar was placed in the epigastrium and 2 more 5-mm trocars were placed in the right subcostal region. The gallbladder was grasped and elevated. There was no sign of any inflammatory changes. The cystic artery and cystic duct were dissected free and these were clipped proximally and distally and ligated in standard fashion. The gallbladder was then taken off the liver bed using electrocautery and placed into the right upper quadrant. We irrigated out the right upper quadrant and any bleeding that was found was treated with electrocautery. At this point, the ports and insufflation were then removed and the gallbladder was taken out through the umbilicus. The umbilical fascia was closed with interrupted 0 Vicryls times 3. The wounds were then irrigated out with normal saline and infused with 10 mL of 0.25% Marcaine with epinephrine. The skin incisions were all closed with subcutaneous 5-0 Monocryl and dressed appropriately. COMPLICATIONS: None. CONDITION: Stable. ANESTHESIA: General endotracheal and local. BLOOD LOSS: Minimal. TRANSINT:[id number] Voice Confirmation ID: [id number] DOCUMENT ID: [id number] OPERATIVE REPORT [id number] LION MCALLISTER RIGO CAMPOS MD CC: LARRY COOL [phone] DICTATION DATE: 08/23/18 1153 FIELD MARKETING REPRESENTATIVE: 08/23/18 1215 [address] [place] 247[address] [place] [address]
[~2018-08-23 07:40] MED LIST changes: +LIPITOR10 MG PO
[2018-08-23 08:05] LABS: BASOPHILS 0.2 % (0-2); EOSINOPHILS 3.3 % (0-7); IMMATURE GRANULOCYTES 0.3 % (0-5); LYMPHOCYTES 25.3 % (15-50); MCH 32.7 pg (26.0-34.0); MCHC 34.9 g/dL (31.0-37.0); MCV 93.7 fL (80.0-100.0); MEAN PLATELET VOLUME 10.3 fL (7.4-10.4); MONOCYTES 8.3 % (2-11); NEUTROPHILS 62.6 % (40-80); PLATELET COUNT 164 10x3/uL (130-400); RBC 4.59 10x6/uL (4.20-6.10); RDW 12.4 % (11.5-14.5); WBC 6.1 10x3/uL (4.8-10.8)
[2018-08-23 08:14] LABS: CALC OSMOLALITY 275 mosm/kg (275-300); CALCIUM 8.8 mg/dL (8.5-10.1); CARBON DIOXIDE 30.8 mmol/L (21.0-32.0); CHLORIDE - SERUM 103 mmol/L (98-107); CREATININE - SERUM 0.9 mg/dL (0.6-1.3); GLUCOSE 95 mg/dL (74-106); POTASSIUM - SERUM 4.3 mmol/L (3.5-5.1); SODIUM 138 mmol/L (136-145); UREA NITROGEN 13 mg/dL (7-18); eGFR NON AFRICAN AMERICAN > 90 mL/min (90-120)
[2018-08-23 09:59] VITALS: BP 111/66; Ht 170.2 cm; Wt 140.6 kg
[2018-08-23] MEDS ORDERED: HYDROCODON-ACE1 EA10 PO (11:50)
== END 2018-08-23 14:58 | disposition home or self-care (01) ==
LOC: D.OPS 07:40
PROVIDERS: ATTEND Surgery
DX: K82.8 Other specified diseases of gallbladder (principal); I25.10 Atherosclerotic heart disease of native coronary artery without angina pectoris; I10 Essential (primary) hypertension; E66.01 Morbid (severe) obesity due to excess calories